=== PATIENT | female | born 1945 | race Caucasian/White ===

== ENCOUNTER 2021-10-13 10:52 | Emergency (ER) | payer MEDICARE, OTHER ==
[~2021-10-13] VITALS: Ht 167.6 cm; Wt 66.8 kg
[2021-10-13 11:02] VITALS: BP 135/73
[2021-10-13] MEDS ORDERED: FLUT16H NASAL (11:03)
[2021-10-13] MEDS ORDERED: CLON-595 PO (11:54)
[2021-10-13] MEDS ORDERED: PREG75 PO (11:54)
[2021-10-13] MEDS ORDERED: TRAZ-257 PO (11:54)
== END 2021-10-13 12:18 | disposition home or self-care (01) ==
LOC: EMS 10:59
DX: G62.9 Polyneuropathy, unspecified (principal); G47.00 Insomnia, unspecified; M54.9 Dorsalgia, unspecified; G89.29 Other chronic pain; F12.90 Cannabis use, unspecified, uncomplicated; Z96.659 Presence of unspecified artificial knee joint; Z98.890 Other specified postprocedural states; Z91.030 Bee allergy status; Z88.6 Allergy status to analgesic agent; Z88.8 Allergy status to other drugs, medicaments and biological substances; Z91.09 Other allergy status, other than to drugs and biological substances
CPT/HCPCS: 99283; Z7502

== ENCOUNTER 2021-10-26 09:03 | Emergency (ER) | payer MEDICARE, OTHER ==
[~2021-10-26] VITALS: Ht 165.1 cm; Wt 72.7 kg
[~2021-10-26 09:03] MED LIST: CLON-595 PO; FLUT16H NASAL; PREG75 PO; TRAZ-257 PO
[2021-10-26 09:07] VITALS: BP 144/106
[2021-10-26] MEDS ORDERED: TRAZ150T80 PO (10:04)
[2021-10-26] MEDS ORDERED: LIDO85CR TP (10:04)
== END 2021-10-26 10:14 | disposition home or self-care (01) ==
LOC: EMS 09:05
DX: S70.11XA Contusion of right thigh, initial encounter (principal); G62.9 Polyneuropathy, unspecified; G89.29 Other chronic pain; M54.9 Dorsalgia, unspecified; G47.00 Insomnia, unspecified; Z88.5 Allergy status to narcotic agent; Z88.8 Allergy status to other drugs, medicaments and biological substances; Z79.899 Other long term (current) drug therapy; X58.XXXA Exposure to other specified factors, initial encounter; Y93.89 Activity, other specified; Y92.89 Other specified places as the place of occurrence of the external cause; Y99.8 Other external cause status
CPT/HCPCS: 99281; Z7502

== ENCOUNTER 2022-06-18 11:38 | Inpatient (IN) | payer MEDICARE, OTHER ==
[~2022-06-18] VITALS: Ht 162.6 cm; Wt 71.9 kg
[~2022-06-18 11:38] MED LIST changes: -CLON-595 PO; -FLUT16H NASAL; +FLUT16SP NASAL; +LIDO85CR TP; +TRAZ150T80 PO
[2022-06-18] MEDS ORDERED: ONDANSETRON HCL 4 MG/2 ML VIAL IVP ONE ×2 (14:45→22:15)
[2022-06-18] MEDS ORDERED: SODIUM CHLORIDE 0.9% 1,000 ML IV ONE ×2 (14:45→16:00)
[2022-06-18 15:00] LABS: BASOPHILS % (AUTO) 0.3 % (0.0-2.0); EOSINOPHILS % (AUTO) 0 % (1.0-6.0); HEMATOCRIT 44.8 % (36-46); LYMPHOCYTES # (AUTO) 1.3 K/uL (1.0-4.8); LYMPHOCYTES % (AUTO) 8.8 % (22.0-44.0); MEAN CORPUSCULAR HEMOGLOBIN 29.9 pg (26.0-34.0); MEAN CORPUSCULAR HGB CONC 33.5 G/dL (31.0-37.0); MEAN CORPUSCULAR VOLUME 89 fL (80-100); MONOCYTES # (AUTO) 1.2 K/uL (0.1-1.0); NEUTROPHILS # (AUTO) 12.5 K/uL (1.8-7.7); NEUTROPHILS % (AUTO) 82.9 % (40.0-70.0); PLATELET COUNT (AUTO) 239 K/uL (150-450); RED BLOOD CELL COUNT(AUTO) 5.03 MIL/uL (4.00-5.20); RED CELL DISTRIBUTION WIDTH 13.4 % (11.5-14.5)
[2022-06-18 15:19] LABS: BILIRUBIN,TOTAL 0.5 mg/dL (0.1-1.0); CALCIUM, TOTAL 9.8 mg/dL (8.8-10.5); CREATININE 1.45 mg/dL (0.60-1.30); TOTAL PROTEIN, SERUM 8.3 g/dL (6.4-8.2)
[2022-06-18 15:22] LABS: POTASSIUM 2.8 mmol/L (3.5-5.1)
[2022-06-18 15:34] LABS: LACTIC ACID 3.1 mmol/L (0.4-2.0)
[2022-06-18 15:34] LABS: COVID AG,FIA SOURCE NASOPHARYNGEAL
[2022-06-18] MEDS ORDERED: POTASSIUM CHLORIDE 20 MEQ ER TABLET PO ONE (16:00)
[2022-06-18] MEDS ORDERED: POTASSIUM CHL 10 MEQ/WATER 100 ML IV ONE (16:15)
[2022-06-18 17:05] LABS: INFLUENZA TYPE A NEGATIVE FOR TYPE A (NEGATIVE); INFLUENZA TYPE B NEGATIVE FOR TYPE B (NEGATIVE)
[2022-06-18 18:44] LABS: APPEARANCE,URINE CLEAR (CLEAR); BILIRUBIN,URINE NEGATIVE (NEGATIVE); GLUCOSE, URINE (UA) NEGATIVE (NEGATIVE); KETONES,URINE 40-60 mg/dL (NEGATIVE); LEUKOCYTE ESTERASE ,URINE NEGATIVE (NEGATIVE); NITRATE,URINE NEGATIVE (NEGATIVE); OCCULT BLOOD,URINE TRACE (NEGATIVE); PROTEIN,URINE 30-70 mg/dL (NEGATIVE); SPECIFIC GRAVITIY, URINE 1.022 (1.003-1.030); UROBILINOGEN,URINE <=1.0 mg/dL (<=1.0)
[2022-06-18 20:03] LABS: RBC,URINE None Seen /HPF (0-2); SQUAMOUS EPITHELIAL CELL,UR Few /LPF (None Seen)
[2022-06-18 20:04] LABS: BACTERIA,URINE Rare /HPF (None Seen)
[2022-06-18] MEDS: POTASSIUM CHL 10 MEQ/WATER 50 ML IV SCH ×2 (22:30→22:54)
[2022-06-18] MEDS ORDERED: ONDA-104 PO (23:08)
[2022-06-19 12:35] LABS: BASOPHILS % (AUTO) 0.2 % (0.0-2.0); EOSINOPHILS % (AUTO) 0.3 % (1.0-6.0); HEMOGLOBIN 13.5 g/dL (12.0-16.0); LYMPHOCYTES # (AUTO) 1.4 K/uL (1.0-4.8); LYMPHOCYTES % (AUTO) 14.4 % (22.0-44.0); MEAN CORPUSCULAR HEMOGLOBIN 30.3 pg (26.0-34.0); MEAN CORPUSCULAR HGB CONC 33.8 G/dL (31.0-37.0); MEAN CORPUSCULAR VOLUME 90 fL (80-100); MONOCYTES # (AUTO) 0.7 K/uL (0.1-1.0); MONOCYTES % (AUTO) 7.7 % (2.0-9.0); NEUTROPHILS # (AUTO) 7.4 K/uL (1.8-7.7); NEUTROPHILS % (AUTO) 77.4 % (40.0-70.0); PLATELET COUNT (AUTO) 195 K/uL (150-450); RED BLOOD CELL COUNT(AUTO) 4.46 MIL/uL (4.00-5.20); RED CELL DISTRIBUTION WIDTH 13.6 % (11.5-14.5)
[2022-06-19 13:01] LABS: LACTIC ACID 1.1 mmol/L (0.4-2.0)
[2022-06-19 13:07] LABS: ALBUMIN 3.2 g/dL (3.4-5.0); BILIRUBIN,TOTAL 0.5 mg/dL (0.1-1.0); CALCIUM, TOTAL 8.5 mg/dL (8.8-10.5); CREATININE 1.01 mg/dL (0.60-1.30); TOTAL PROTEIN, SERUM 6.7 g/dL (6.4-8.2)
[2022-06-19 13:12] LABS: PROTHROMBIN TIME 11.1 SEC (9.4-11.6)
[2022-06-19 13:13] LABS: POTASSIUM 2.9 mmol/L (3.5-5.1)
[2022-06-19] MEDS ORDERED: POTASSIUM CHL 20 MEQ/D5-0.45NS 1,000 ML IV ONE (13:30)
[2022-06-19] MEDS ORDERED: POTASSIUM CHL 10 MEQ/WATER 50 ML IV PRN (14:15)
[2022-06-19] MEDS ORDERED: SODIUM CHLORIDE 0.9% 1,000 ML IV ONE (14:15)
[2022-06-19] MEDS ORDERED: ONDANSETRON HCL 4 MG/2 ML VIAL IVP PRN (14:15)
[2022-06-19] MEDS ORDERED: ZOLPIDEM TARTRATE 5 MG TABLET PO PRN (14:15)
[2022-06-19] MEDS ORDERED: MAGNESIUM HYDROXIDE SUSPENSION 30 ML UDCUP PO PRN (14:15)
[2022-06-19] MEDS ORDERED: BISACODYL 10 MG RECTAL RECTAL SUPPOSITORY PR PRN (14:15)
[2022-06-19] MEDS ORDERED: POTASSIUM CHLORIDE 20 MEQ ER TABLET PO PRN (14:15)
[2022-06-19] MEDS ORDERED: ACETAMINOPHEN 325 MG TABLET PO PRN (14:15)
[2022-06-19] MEDS: MetroNIDAZOLE 500 MG TABLET PO SCH ×2 (16:02→23:47)
[2022-06-19] MEDS: HEPARIN SODIUM,PORCINE 5,000 UNITS/ML VIAL SQ SCH ×2 (16:03→23:47)
[2022-06-19] MEDS: DOCUSATE SODIUM 100 MG CAPSULE PO SCH (20:09)
[2022-06-19 20:40] VITALS: BP 138/79
[2022-06-20 04:19] VITALS: BP 133/68
[2022-06-20 07:51] LABS: BASOPHILS % (AUTO) 0.1 % (0.0-2.0); EOSINOPHILS % (AUTO) 0.7 % (1.0-6.0); HEMOGLOBIN 13.1 g/dL (12.0-16.0); LYMPHOCYTES # (AUTO) 1.5 K/uL (1.0-4.8); LYMPHOCYTES % (AUTO) 18.1 % (22.0-44.0); MEAN CORPUSCULAR HEMOGLOBIN 30.6 pg (26.0-34.0); MEAN CORPUSCULAR HGB CONC 34.4 G/dL (31.0-37.0); MEAN CORPUSCULAR VOLUME 89 fL (80-100); MONOCYTES # (AUTO) 0.5 K/uL (0.1-1.0); MONOCYTES % (AUTO) 6.6 % (2.0-9.0); NEUTROPHILS # (AUTO) 6.2 K/uL (1.8-7.7); NEUTROPHILS % (AUTO) 74.5 % (40.0-70.0); PLATELET COUNT (AUTO) 197 K/uL (150-450); RED BLOOD CELL COUNT(AUTO) 4.27 MIL/uL (4.00-5.20); RED CELL DISTRIBUTION WIDTH 13.4 % (11.5-14.5)
[2022-06-20 08:20] LABS: CALCIUM, TOTAL 7.8 mg/dL (8.8-10.5); CREATININE 0.94 mg/dL (0.60-1.30)
[2022-06-20 08:40] LABS: POTASSIUM 2.6 mmol/L (3.5-5.1)
[2022-06-20] MEDS: FLUTICASONE PROPIONATE 50 MCG/SPRAY 16 GM NASAL SPRAY NASAL SCH (08:46)
[2022-06-20] MEDS: HEPARIN SODIUM,PORCINE 5,000 UNITS/ML VIAL SQ SCH ×3 (08:46→23:39)
[2022-06-20] MEDS: PANTOPRAZOLE SODIUM 40 MG DR TABLET PO SCH (08:46)
[2022-06-20] MEDS: MetroNIDAZOLE 500 MG TABLET PO SCH ×3 (08:46→23:39)
[2022-06-20] MEDS: DOCUSATE SODIUM 100 MG CAPSULE PO SCH ×2 (08:47→19:50)
[2022-06-20 09:00] VITALS: BP 145/77
[2022-06-20] MEDS ORDERED: MAGNESIUM SULFATE 4 GM/WATER 100 ML IV PRN (11:15)
[2022-06-20] MEDS ORDERED: MAGNESIUM SULFATE 2 GM/WATER 50 ML IV PRN (11:15)
[2022-06-20] MEDS ORDERED: MAGNESIUM OXIDE 400 MG TABLET PO PRN (11:15)
[2022-06-20] MEDS: MAGNESIUM OXIDE 400 MG TABLET PO SCH (12:19)
[2022-06-20] MEDS: MORPHINE SULFATE 2 MG/ML SYRINGE IVP PRN ×2 (13:25→23:47)
[2022-06-20 14:50] LABS: ALBUMIN 3.1 g/dL (3.4-5.0)
[2022-06-20 17:06] VITALS: BP 165/79
[2022-06-20 19:50] VITALS: BP 144/93
[2022-06-21 04:22] VITALS: BP 138/76
[2022-06-21 07:56] LABS: BASOPHILS % (AUTO) 0.1 % (0.0-2.0); EOSINOPHILS % (AUTO) 1.7 % (1.0-6.0); HEMATOCRIT 39.8 % (36-46); HEMOGLOBIN 13.7 g/dL (12.0-16.0); LYMPHOCYTES % (AUTO) 19.4 % (22.0-44.0); MEAN CORPUSCULAR HEMOGLOBIN 30.7 pg (26.0-34.0); MEAN CORPUSCULAR HGB CONC 34.4 G/dL (31.0-37.0); MEAN CORPUSCULAR VOLUME 89 fL (80-100); MONOCYTES # (AUTO) 0.8 K/uL (0.1-1.0); MONOCYTES % (AUTO) 7.5 % (2.0-9.0); NEUTROPHILS # (AUTO) 7.4 K/uL (1.8-7.7); NEUTROPHILS % (AUTO) 71.3 % (40.0-70.0); PLATELET COUNT (AUTO) 238 K/uL (150-450); RED BLOOD CELL COUNT(AUTO) 4.47 MIL/uL (4.00-5.20); RED CELL DISTRIBUTION WIDTH 13.5 % (11.5-14.5)
[2022-06-21 08:11] LABS: CALCIUM, TOTAL 8.3 mg/dL (8.8-10.5); POTASSIUM 3.7 mmol/L (3.5-5.1)
[2022-06-21 08:32] VITALS: BP 136/88
[2022-06-21] MEDS: DOCUSATE SODIUM 100 MG CAPSULE PO SCH (08:50)
[2022-06-21] MEDS: MetroNIDAZOLE 500 MG TABLET PO SCH ×2 (08:50→16:00)
[2022-06-21] MEDS: PANTOPRAZOLE SODIUM 40 MG DR TABLET PO SCH (08:50)
[2022-06-21] MEDS: HEPARIN SODIUM,PORCINE 5,000 UNITS/ML VIAL SQ SCH ×2 (08:50→16:00)
[2022-06-21] MEDS: FLUTICASONE PROPIONATE 50 MCG/SPRAY 16 GM NASAL SPRAY NASAL SCH (08:50)
[2022-06-21] MEDS: MAGNESIUM OXIDE 400 MG TABLET PO SCH (08:50)
[2022-06-21] MEDS ORDERED: METR500 PO (12:06)
[2022-06-21] MEDS ORDERED: MAGN400T57 PO (12:06)
[2022-06-21 15:36] VITALS: BP 138/86
== END 2022-06-21 16:00 | disposition home or self-care (01) | DRG 391 ==
LOC: EMS 11:45 → AHU 06-19 12:50 → 6S 06-19 18:08
PROVIDERS: ADMIT Internal Medicine; ATTEND Internal Medicine
DX: A08.4 Viral intestinal infection, unspecified (principal); N17.0 Acute kidney failure with tubular necrosis; R65.11 Systemic inflammatory response syndrome (SIRS) of non-infectious origin with acute organ dysfunction; E87.20 Acidosis, unspecified; E87.6 Hypokalemia; J30.9 Allergic rhinitis, unspecified; Z20.822 Contact with and (suspected) exposure to COVID-19; M54.30 Sciatica, unspecified side; Z96.659 Presence of unspecified artificial knee joint; K40.20 Bilateral inguinal hernia, without obstruction or gangrene, not specified as recurrent; K42.9 Umbilical hernia without obstruction or gangrene; K76.89 Other specified diseases of liver; N28.1 Cyst of kidney, acquired; E86.0 Dehydration; Z88.5 Allergy status to narcotic agent; Z88.2 Allergy status to sulfonamides; Z91.030 Bee allergy status; Z88.6 Allergy status to analgesic agent; Z79.899 Other long term (current) drug therapy; Z59.02 Unsheltered homelessness
CPT/HCPCS: 71045; 74176; 80048; 80053; 81001; 82040; 83605; 83735; 84132; 85025; 85610; 85730; 87040; 87804; 97162; 99285; J1644; J2270; J2405; J3480; J7030; 36415-L1; 36415-TC